=== PATIENT | female | born 1985 | race Caucasian/White ===

== ENCOUNTER 2023-01-30 11:25 | Emergency (ER) | payer MEDICAID ==
[~2023-01-30] VITALS: Ht 160 cm; Wt 65.8 kg
[2023-01-30] MEDS ORDERED: ACETAMINOPHEN 325 MG TABLET PO ONE (12:30)
[2023-01-30] MEDS ORDERED: CYCLOBENZAPRINE 10 MG TABLET PO ONE (12:30)
[2023-01-30] MEDS ORDERED: ACETAMINOPHEN ES 500 MG TABLET ONE (12:36)
[2023-01-30] MEDS ORDERED: CYCLOBENZAPRINE 10 MG TABLET ONE (12:36)
[2023-01-30] MEDS ORDERED: CYCL5TAB PO (13:30)
[2023-01-30] MEDS ORDERED: IBUP-1953 PO (13:30)
[2023-01-30] MEDS ORDERED: LIDO30AD10 TP (13:30)
[2023-01-30 13:36] VITALS: BP 112/75; TEMP 98.1; O2SAT 98
== END 2023-01-30 13:35 | disposition home or self-care (01) ==
LOC: ER 11:25
DX: S13.8XXA Sprain of joints and ligaments of other parts of neck, initial encounter (principal); R07.89 Other chest pain; Z79.899 Other long term (current) drug therapy; V89.2XXA Person injured in unspecified motor-vehicle accident, traffic, initial encounter; Y93.89 Activity, other specified; Y92.89 Other specified places as the place of occurrence of the external cause; Y99.8 Other external cause status
CPT/HCPCS: 71045-TC; 73030-TC